=== PATIENT | male | born 1985 | race Two or more races ===

== ENCOUNTER 2018-05-31 10:16 | Emergency (ER) | payer SELFPAY ==
[~2018-05-31] VITALS: Ht 177.8 cm; Wt 88.5 kg
[2018-05-31 10:54] VITALS: BP 159/94
== END 2018-05-31 11:43 | disposition home or self-care (01) ==
LOC: ER 10:16
DX: S31.813D Puncture wound without foreign body of right buttock, subsequent encounter (principal); F17.210 Nicotine dependence, cigarettes, uncomplicated; X58.XXXD Exposure to other specified factors, subsequent encounter

== ENCOUNTER 2018-07-10 00:12 | Emergency (ER) | payer SELFPAY ==
[~2018-07-10] VITALS: Ht 170.2 cm; Wt 93.0 kg
[2018-07-10 01:18] VITALS: BP 134/78
[2018-07-10] MEDS ORDERED: cefTRIAXone SOD 1,000 MG VL IM ONE (03:30)
== END 2018-07-10 04:30 | disposition home or self-care (01) ==
LOC: ER 00:14
DX: S80.811A Abrasion, right lower leg, initial encounter (principal); L03.116 Cellulitis of left lower limb; F17.210 Nicotine dependence, cigarettes, uncomplicated; W19.XXXA Unspecified fall, initial encounter; Y93.89 Activity, other specified; Y99.8 Other external cause status; Y92.89 Other specified places as the place of occurrence of the external cause
CPT/HCPCS: 96372; 99283; J0696

== ENCOUNTER 2023-05-17 08:48 | Emergency (ER) | payer SELFPAY ==
[~2023-05-17] VITALS: Ht 177.8 cm; Wt 91.0 kg
[2023-05-17 09:00] VITALS: BP 126/74; PULSE 102; RESP 24; O2SAT 90
[2023-05-17 11:02] LABS: Hematocrit 47.2 % (41.0-53.0); Hemoglobin 15.4 g/dL (13.5-17.5); Mean Corpuscular Hemoglobin 27.9 pg (28.0-32.0); Mean Corpuscular Hgb Conc. 32.6 g/dL (32.0-36.0); Mean Corpuscular Volume 85.6 fL (80.0-100.0); Red Blood Cells 5.51 10^6/uL (4.5-5.90); Red Cell Distribution Width 15.4 % (11.8-14.3); White Blood Cell 16.7 10^3/uL (4.4-10.8)
[2023-05-17 11:20] LABS: Band Neutrophils % (manual) 0; Basophils % (manual) 0 (0.0-2.0); Blast Cells 0; Metamyelocytes % 0; Promyelocytes % 0; Reactive Lymphocytes 0
[2023-05-17 11:43] LABS: Alanine Aminotransferase 30 U/L (7-40); Albumin 4.2 g/dL (3.2-4.8); Alkaline Phosphatase 119 U/L (46-116); Anion Gap 7 (5-15); Aspartate Aminotransferase 17 U/L (13-40); BUN/Creatinine Ratio 16.2 (10.0-20.0); Blood Urea Nitrogen 11 mg/dL (9-23); Calcium 9.3 mg/dL (8.7-10.4); Carbon Dioxide 28 mmol/L (20-30); Chloride 100 mmol/L (98-107); Glucose 146 mg/dL (74-106); Lipase 30 U/L (12-53); Potassium 5.4 mmol/L (3.5-5.1); Sodium 135 mmol/L (136-145)
[2023-05-17 11:44] LABS: Bilirubin, Total 0.5 mg/dL (0.2-1.0); Total Protein 6.8 g/dL (5.7-8.2)
[2023-05-17] MEDS ORDERED: PIPERACILLIN-TAZOB 3.375GM 100 ML IV ONE (12:45)
[2023-05-17 14:29] LABS: Eosinophils % (manual) 1 (0-7); Lymphocytes % (manual) 8 (10.0-50.0); Monocytes % (manual) 5 (0-12); Myelocytes % 4; Platelet Estimate Adequate
== END 2023-05-17 13:54 | disposition left against medical advice (07) ==
LOC: ER 08:48
DX: R06.02 Shortness of breath (principal); R11.2 Nausea with vomiting, unspecified; Z53.21 Procedure and treatment not carried out due to patient leaving prior to being seen by health care provider; Z79.899 Other long term (current) drug therapy
CPT/HCPCS: 36415; 71045; 80053; 83605; 83690; 83735; 83880; 84484; 85007; 85027; 85379